=== PATIENT | female | born 1995 | race Caucasian/White ===

== ENCOUNTER 2016-12-21 21:05 | Emergency (ER) | payer SELFPAY ==
[~2016-12-21] VITALS: Ht 160 cm; Wt 58.0 kg
[2016-12-22] MEDS ORDERED: SODIUM CHLORIDE 0.9% 1,000 ML IV ONE (02:06)
[2016-12-22] MEDS ORDERED: ACETAMINOPHEN 325MG TABLET PO ONE (02:15)
[2016-12-22] MEDS ORDERED: ONDANSETRON HCL 4MG/2ML VIAL IV ONE (02:15)
[2016-12-22 02:34] LABS: BASOPHILS % 0.4 % (0.0-2.0); EOSINOPHILS % 6.5 % (0.0-5.0); HEMATOCRIT. 42.1 % (36.0-48.0); HEMOGLOBIN. 14.1 g/dL (12.0-16.0); LYMPHOCYTES % 9.8 % (20.0-50.0); MEAN CORPUSCULAR HEMOGLOBIN 28.4 pg (28.0-32.0); MEAN CORPUSCULAR HGB CONC 33.6 g/dL (31.0-37.0); MEAN CORPUSCULAR VOLUME 84.6 fL (81.0-99.0); MONOCYTES % 3.1 % (2.0-8.0); NEUTROPHILS % 80.2 % (40.0-76.0); PLATELET 270 x1000/uL (130-400); RED BLOOD CELL COUNT 4.98 mill/uL (4.2-5.4); RED CELL DISTRIBUTION WIDTH 13.3 % (11.6-14.6); WHITE BLOOD COUNT 14.3 x1000/uL (4.5-11.0)
[2016-12-22 02:41] LABS: CHLORIDE 104 mEq/L (98-107); INDEX HEMOLYSI 1 (1-3); INDEX ICTERIC 1 (1-4); INDEX LIPEMIC 1 (1-3)
[2016-12-22 02:57] LABS: ALANINE AMINOTRANSFERASE 16 IU/L (13-61); ALBUMIN 3.7 g/dL (3.4-5.0); ANION GAP 14; CALCIUM 8.9 mg/dL (8.5-10.1); CARBON DIOXIDE 24 mEq/L (21-32); LIPASE 142 IU/L (73-393); UREA NITROGEN BLOOD 8 mg/dL (7-21); eGFR > 60 mL/min (>60)
[2016-12-22 03:07] LABS: B-HCG QUANTITATIVE 47271 mIU/mL (<3)
[2016-12-22 03:27] LABS: CLARITY URINE CLOUDY (CLEAR); COLOR URINE DARK YELLOW (YELLOW); GLUCOSE URINE NEGATIVE (NEGATIVE); KETONES URINE 4+ (NEGATIVE); LEUKOCYTE ESTERASE URINE 1+ (NEGATIVE); NITRITE URINE NEGATIVE (NEGATIVE); OCCULT BLOOD URINE 2+ (NEGATIVE); PH URINE 5.5 (4.5-8.0); PROTEIN URINE 1+ (NEGATIVE); SPECIFIC GRAVITY URINE 1.032 (1.005-1.030)
[2016-12-22 03:49] LABS: BACTERIA URINE 2+; SQUAMOUS EPITHELIAL CELL URINE 1+ /lpf (RARE/1+)
[2016-12-22] MEDS ORDERED: METOCLOPRAMIDE HCL 10MG/2ML VIAL IV ONE (04:00)
[2016-12-22 04:19] VITALS: BP 98/64
[2016-12-22] MEDS ORDERED: METOCLOPRAMIDE HCL 10MG TABLET PO ONE (04:45)
== END 2016-12-22 05:10 | disposition home or self-care (01) ==
LOC: ER 21:07
DX: O44.01 Complete placenta previa NOS or without hemorrhage, first trimester (principal); O23.41 Unspecified infection of urinary tract in pregnancy, first trimester; Z3A.11 11 weeks gestation of pregnancy
CPT/HCPCS: 36415; 76801; 76817; 80053; 81001; 81025; 83690; 84702; 85025; 86850; 86900; 86901; 96360; 99285; J2405; J7030; Z7610

== ENCOUNTER 2023-08-01 03:45 | Emergency (ER) | payer OTHER ==
[2023-08-01 07:26] LABS: CLARITY URINE CLOUDY (CLEAR); COLOR URINE BLOODY (YELLOW)
[2023-08-01 07:27] LABS: GLUCOSE URINE NEGATIVE (NEGATIVE); KETONES URINE NEGATIVE (NEGATIVE); OCCULT BLOOD URINE 3+ (NEGATIVE); PH URINE 7.5 (4.5-8.0); PROTEIN URINE 2+ (NEGATIVE)
[2023-08-01 07:28] LABS: LEUKOCYTE ESTERASE URINE NEGATIVE (NEGATIVE); NITRITE URINE POSITIVE (NEGATIVE); UROBILINOGEN URINE 0.2 E.U./dL (0.2-1.0)
[2023-08-01] MEDS ORDERED: CIPR-263 MT (07:42)
[2023-08-01 07:47] LABS: SQUAMOUS EPITHELIAL CELL URINE 1+ /lpf (RARE/1+)
[2023-08-01 07:48] LABS: WBC URINE 0-2 /hpf (0-2)
[2023-08-01 07:49] LABS: BACTERIA URINE 2+; RBC URINE TNTC /hpf (0-2)
[2023-08-01 08:12] VITALS: PULSE 91; RESP 20
== END 2023-08-01 08:14 | disposition home or self-care (01) ==
LOC: ER 03:45
DX: N39.0 Urinary tract infection, site not specified (principal)
CPT/HCPCS: 81003; 81025; 99283